=== PATIENT | male | born 1940 | race Caucasian/White ===

== ENCOUNTER 2016-07-16 15:55 | Emergency (ER) | payer OTHER ==
[~2016-07-16] VITALS: Ht 182.9 cm; Wt 105.0 kg
[~2016-07-16 15:55] MED LIST: IBUP-238 PO; OMEP20TA39 PO; PRESCAP5 PO; PROS5TAB2 PO; TERA2CAP3 PO
[2016-07-16 16:05] VITALS: BP_SYST 162; BP_SYST 165; BP_SYST 173; BP_DIAS 69; BP_DIAS 85; BP_DIAS 90; PULSE 55; PULSE 60; RESP 15; TEMP 98.3; O2SAT 98
--- NOTE | 2016-07-16 16:13 | PD ---
HPI Chief Complaint: Chest Pain Time Seen by Provider: 15:59 Travel History International Travel<30 days: No Contact w/Intl Traveler<30days: No Traveled to known affect area: No History of Present Illness HPI 76 y/o male presents with chest pain that started last night. It is intermittent in nature. He took a baby aspirin this morning. He denies prior heart catheterization. He denies following with sourcing specialist. He states that he had an exercise stress test before but doesn't recall what it was. He states that he doesn't want to do the nuclear version because he doesn't like foreign things injected. Quality is sharp. Severity is none currently. He denies other concurrent complaints. PFSH Past Medical History Arthritis: Yes Asthma: No Autoimmune Disease: No Heart Rhythm Problems: No Cancer: Yes (Facial Melenoma - Removed 2007) Cardiac Catheterization: No Cardiovascular Problems: Yes High Cholesterol: Yes Chest Pain: Yes Congestive Heart Failure: No COPD: No Cerebrovascular Accident: No Coronary Artery Disease: Yes Diabetes: No Diminished Hearing: No Endocrine: No GERD: No Glaucoma: No Genitourinary: Yes (Enlarged prostate) Headaches: No Hepatitis: No Hiatal Hernia: Yes Hypertension: Yes Immune Disorder: No Kidney Stones: No Musculoskeletal: No Neurologic: No Psychiatric: No Reproductive: No Respiratory: No Immunizations Current: No Myocardial Infarction: Yes (CHEST PAIN RULE OUT WI) Renal Failure: No Seizures: No Sleep Apnea: Yes (Uses CPAP) Thyroid Disease: No Ulcer: No Past Surgical History Abdominal Surgery: No Appendectomy: No Cardiac Surgery: No Cholecystectomy: No Ear Surgery: No Endocrine Surgery: No Eye Surgery: No Genitourinary Surgery: No Gynecologic Surgery: No Oral Surgery: No Pacemaker: No Thoracic Surgery: No Tonsillectomy: Yes Other Surgery: Yes (REMOVAL OF MELANOMA TO LEFT TEMPORAL AREA ) Family History Narrative Family History father stroke Family Myocardial Infarction: No Social History Alcohol Use: No Tobacco Use: No Substance Use: No Allergies-Medications (Allergen,Severity, Reaction): Coded Allergies: Bumble Bee (Verified Allergy, Severe, 09/06/15) Penicillin (Verified Allergy, Mild, 09/06/15) Reported Meds & Prescriptions Reported Meds & Active Scripts Active Reported Aspirin 81 Mg Chew 81 Mg CHEW DAILY [B/P Med] Review of Systems Except as stated in HPI: all other systems reviewed are Neg Physical Exam Narrative GENERAL: Well-nourished, well-developed patient. SKIN: Warm and dry. HEAD: Normocephalic and atraumatic. EYES: No injection or drainage. ENT: No nasal drainage noted. NECK: Supple, trachea midline. CARDIOVASCULAR: Regular rate and rhythm RESPIRATORY: Breath sounds equal bilaterally. No accessory muscle use. GASTROINTESTINAL: Abdomen soft, non-tender, nondistended. EXTREMITIES: No edema. BACK: Nontender without obvious deformity. NEUROLOGICAL: Awake and alert. moves all extremities. Normal speech. Data Data Last Documented VS Vital Signs Date Time Temp Pulse Resp B/P Pulse Ox O2 Delivery O2 Flow Rate FiO2 07/16/16 17:06 98 Room Air 07/16/16 16:05 60 165/85 173/69 07/16/16 16:05 98.3 15 Orders Electrocardiogram (07/16/16 16:04) Ckmb (Isoenzyme) Profile (07/16/16 16:04) Complete Blood Count With Diff (07/16/16 16:04) Comprehensive Metabolic Panel (07/16/16 16:04) Magnesium (Mg) (07/16/16 16:04) Prothrombin Time / Inr (Pt) (07/16/16 16:04) Act Partial Throm Time (Ptt) (07/16/16 16:04) Troponin I (07/16/16 16:04) Chest, Single Ap (07/16/16 16:04) Ecg Monitoring (07/16/16 16:04) Bilateral Bp Monitoring (07/16/16 16:04) Iv Access Insert/Monitor (07/16/16 16:04) Oximetry (07/16/16 16:04) Aspirin Chew (Aspirin Chew) (07/16/16 16:15) Sodium Chloride 0.9% Flush (Ns Flush) (07/16/16 16:15) CKMB (07/16/16 16:20) CKMB% (07/16/16 16:20) B-Type Natriuretic Peptide (07/16/16 17:07) Labs Laboratory Tests Test 07/16/16 16:20 White Blood Count 6.6 TH/MM3 Red Blood Count 4.18 MIL/MM3 Hemoglobin 12.9 GM/DL Hematocrit 38.8 % Mean Corpuscular Volume 92.8 FL Mean Corpuscular Hemoglobin 30.9 PG Mean Corpuscular Hemoglobin 33.3 % Concent Red Cell Distribution Width 13.2 % Platelet Count 233 TH/MM3 Mean Platelet Volume 7.8 FL Neutrophils (%) (Auto) 51.3 % Lymphocytes (%) (Auto) 34.0 % Monocytes (%) (Auto) 12.0 % Eosinophils (%) (Auto) 2.5 % Basophils (%) (Auto) 0.2 % Neutrophils # (Auto) 3.3 TH/MM3 Lymphocytes # (Auto) 2.3 TH/MM3 Monocytes # (Auto) 0.8 TH/MM3 Eosinophils # (Auto) 0.2 TH/MM3 Basophils # (Auto) 0.0 TH/MM3 CBC Comment DIFF FINAL Differential Comment Prothrombin Time 11.3 SEC Prothromb Time International 1.0 RATIO Ratio Activated Partial 26.6 SEC Thromboplast Time Sodium Level 140 MEQ/L Potassium Level 3.5 MEQ/L Chloride Level 104 MEQ/L Carbon Dioxide Level 31.3 MEQ/L Anion Gap 5 MEQ/L Blood Urea Nitrogen 13 MG/DL Creatinine 1.00 MG/DL Estimat Glomerular Filtration 73 ML/MIN Rate Random Glucose 118 MG/DL Calcium Level 8.5 MG/DL Magnesium Level 2.0 MG/DL Total Bilirubin 0.4 MG/DL Aspartate Amino Transf 13 U/L (AST/SGOT) Alanine Aminotransferase 23 U/L (ALT/SGPT) Alkaline Phosphatase 86 U/L Total Creatine Kinase 130 U/L Creatine Kinase MB 1.7 NG/ML Troponin I LESS THAN 0.02 NG/ML B-Type Natriuretic Peptide 89 PG/ML Total Protein 7.1 GM/DL Albumin 3.7 GM/DL MDM Medical Decision Making Medical Screen Exam Complete: Yes Emergency Medical Condition: Yes Medical Record Reviewed: Yes (h confirmed) Interpretation(s) EKG is sinus bradycardia at [address] segment elevation or consecutive T- wave inversion, PVCs and PACs noted CBC & BMP Diagram 07/16/16 16:20 cxr moderate chf-bnp added on Differential Diagnosis WI, musculoskeletal, costochondritis, gastritis Narrative Course Will check blood work, chest x-ray, EKG and dose with aspirin and reevaluate. Currently pain-free 1715 lengthy discussion with patient advised chf findings on xray, denies history of, advised observation in hospital and states will leave ama, AMA: The risks of leaving against medical advice without further evaluation treatment were discussed with the patient. These risks include cardiac dysfunction, cardiac dysrhythmia, possible heart attack, possible stroke or . The patient indicated understanding of these risks and appeared to have the capacity to make this decision. charge nurse at bedside and family member and could not convince to stay, [facility] and [facility] could on the way there Diagnosis Primary Impression: Chest pain Qualified Code: R07.9 - Chest pain, unspecified type Additional Impression: CHF (congestive heart failure) Qualified Code: I50.9 - Congestive heart failure, unspecified congestive heart failure chronicity, unspecified congestive heart failure type Additional Instructions: return for completion of testing Med/Other Pt SpecificInfo: No Change to Meds Disposition: 07 AGAINST MEDICAL ADVICE Condition: Mary Joseph MD Jul 16, 2016 16:13
[2016-07-16] MEDS ORDERED: B/P MED (16:14)
[2016-07-16] MEDS ORDERED: ASPI81CH CHEW (16:14)
[2016-07-16] MEDS ORDERED: SODIUM CHLORIDE 0.9% FLUSH 10 ML FLUSH IVF PRN (16:15)
[2016-07-16] MEDS ORDERED: ASPIRIN 81 MG CHEW TAB PO ONE (16:15)
[2016-07-16 16:37] LABS: AUTOMATED NEUTROPHIL # 3.3 TH/MM3 (1.8-7.7); BASOPHIL % 0.2 % (0.0-2.0); EOSINOPHIL # 0.2 TH/MM3 (0-0.4); EOSINOPHIL % 2.5 % (0.0-4.0); HEMATOCRIT 38.8 % (39.0-51.0); HEMO FLAGS DIFF FINAL; LYMPHOCYTE # 2.3 TH/MM3 (1.0-4.8); MEAN CELL VOLUME 92.8 FL (80.0-100.0); MEAN CORPUSCULAR HEMOGLOBIN 30.9 PG (27.0-34.0); MEAN CORPUSCULAR HGB CONC 33.3 % (32.0-36.0); NEUT % 51.3 % (16.0-70.0); PLATELET COUNT 233 TH/MM3 (150-450); RED BLOOD COUNT 4.18 MIL/MM3 (4.50-5.90); RED CELL DISTRIBUTION WIDTH 13.2 % (11.6-17.2); WHITE BLOOD COUNT 6.6 TH/MM3 (4.0-11.0)
[2016-07-16 16:50] LABS: CHLORIDE 104 MEQ/L (98-107); POTASSIUM 3.5 MEQ/L (3.5-5.1); SODIUM (NA) 140 MEQ/L (136-145)
[2016-07-16 16:54] LABS: ANION GAP 5 MEQ/L (5-15); BICARBONATE 31.3 MEQ/L (21.0-32.0); BLOOD UREA NITROGEN 13 MG/DL (7-18)
--- NOTE | 2016-07-16 16:55 | RADHPO ---
EXAM DATE/TIME: 07/16/2016 16:27 [facility] COMPARISON: CHEST SINGLE AP, September 06, 2015, 1:16. INDICATIONS : Chest pain. MEDICAL HISTORY : None. SURGICAL HISTORY : None. ENCOUNTER: Initial ACUITY: 1 day PAIN SCORE: 7/10 LOCATION: Bilateral chest FINDINGS: The lungs are underaerated. The heart is enlarged. Moderate interstitial edema is pre sent. There is no alveolar consolidation, pleural effusion or pneumothorax. Degenerative changes se en about both shoulders. CONCLUSION: 1. Underaerated. 2. Moderate congestive failure. Ra Perez MD FACR on July 16, 2016 at 16:38 Board Certified Radiologist. This report was verified electronically.
[2016-07-16 16:57] LABS: ALT (GPT) 23 U/L (12-78); AST (GOT) 13 U/L (15-37); GLOMERULAR FILTRATION RATE 73 ML/MIN (>89)
[2016-07-16 16:58] LABS: TOTAL BILIRUBIN ADULT 0.4 MG/DL (0.2-1.0)
[2016-07-16 17:00] LABS: ALKALINE PHOSPHATASE 86 U/L (45-117); CREATINE KINASE 130 U/L (39-308)
[2016-07-16 17:06] VITALS: O2SAT 98
[2016-07-16 17:07] LABS: APTT (PATIENT) 26.6 SEC (24.3-30.1); PROTHROMBIN TIME - PATIENT 11.3 SEC (9.8-11.6)
[2016-07-16 17:12] LABS: CKMB 1.7 NG/ML (0.5-3.6)
--- NOTE | 2016-07-17 15:15 | EKG ---
Date Performed: 07/16/2016 Time Performed: 15:56:38 PTAGE: 76 years EKG: Sinus bradycardia with PVC(s) with PAC(s). Leftward axis Poor R wave progression - probable normal variant Inferior/lateral ST-T changes are nonspecific Borderline ECG Since PREVIOUS TRACING 09/06/2015, PVCs and PACs are new. PREVIOUS TRACIN09/06/2015 07.13 DOCTOR: Gary Hope Interpretating Date/Time 07/17/2016 15:13:50
== END 2016-07-16 17:56 | disposition left against medical advice (07) ==
LOC: PHED 15:55
DX: R07.9 Chest pain, unspecified (principal); I50.9 Heart failure, unspecified; R94.31 Abnormal electrocardiogram [ECG] [EKG]; I10 Essential (primary) hypertension; E78.00 Pure hypercholesterolemia, unspecified; G47.30 Sleep apnea, unspecified; Z87.39 Personal history of other diseases of the musculoskeletal system and connective tissue; Z85.828 Personal history of other malignant neoplasm of skin; Z86.79 Personal history of other diseases of the circulatory system; Z87.438 Personal history of other diseases of male genital organs; Z53.29 Procedure and treatment not carried out because of patient's decision for other reasons
CPT/HCPCS: 71010; 80053; 82550; 82552; 83735; 83880; 84484; 85025; 85610; 85730; 93005